=== PATIENT | female | born 1995 | race Caucasian/White ===

== ENCOUNTER 2020-02-21 10:56 | Outpatient (CLI) | payer OTHER, MEDICAID ==
[2020-02-21 10:59] VITALS: BP 103/56
== END 2020-02-21 11:30 | disposition home or self-care (01) ==
LOC: LDOP 10:56
PROVIDERS: ATTEND Obstetrics & Gynecology
DX: O36.8130 Decreased fetal movements, third trimester, not applicable or unspecified (principal); Z3A.31 31 weeks gestation of pregnancy
CPT/HCPCS: 59025; 99201; G0463